=== PATIENT | male | born 1990 | race Caucasian/White ===

== ENCOUNTER 2021-12-16 14:18 | Emergency (ER) | payer OTHER ==
[~2021-12-16] VITALS: Ht 180.3 cm; Wt 81.6 kg
[2021-12-16 14:19] VITALS: BP 162/98
--- NOTE | 2021-12-16 14:35 | NUR ---
31 y/o male biba from work, pt presents to ED c/o of worsening anxiety, increased body pain, chest pain, abd pain, and general weakness that started today at work. pt stated "my organs are shutting down, my body feels weird, I cant sit down". pt reports also having numbness and tingling in upper extremities as well as a chest pressure. skin is pink/warm/dry. a&o x4, unable to ambulate. lungs clear bl, heart rate even and tachy. pt denies dysuria, hematuria, urinary frequency or retention, or anyone sick in the household with the same symptoms. pt denies any fever or cough at this time. pt states pain 10/10 at this time. ermd made aware of pt. pmh: denies nka med: unable to recall, GI supplements
[2021-12-16 16:09] LABS: BASOPHILS % (AUTO) 0.4 % (0.0-2.0); EOSINOPHILS % (AUTO) 0.2 % (0.0-4.0); HEMATOCRIT 45.4 % (36-52); HEMOGLOBIN 15.6 g/dL (12.0-18.0); LYMPHOCYTES # (AUTO) 1.1 K/uL (2.0-11.5); LYMPHOCYTES % (AUTO) 9.3 % (20.5-51.1); MEAN CORPUSCULAR HEMOGLOBIN 30 pg (27-31); MEAN CORPUSCULAR HGB CONC 34 g/dL (33-37); MEAN CORPUSCULAR VOLUME 86.9 fL (80-94); MONOCYTES # (AUTO) 0.6 K/uL (0.8-1.0); MONOCYTES % (AUTO) 5.5 % (1.7-9.3); NEUTROPHILS # (AUTO) 9.7 K/uL (1.8-7.7); NEUTROPHILS % (AUTO) 84.6 % (42.2-75.2); PLATELET COUNT (AUTO) 296 K/uL (140-450); RED BLOOD CELL COUNT(AUTO) 5.23 MIL/uL (4.20-6.10); RED CELL DISTRIBUTION WIDTH 13.2 % (11.6-13.7); WHITE BLOOD COUNT (AUTO) 11.4 K/uL (4.8-10.8)
[2021-12-16 16:30] LABS: ALBUMIN 4.7 g/dL (3.4-5.0); ANION GAP 18.8 (8-16); CARBON DIOXIDE 21.9 mmol/L (21-32); CREATININE 1.1 mg/dL (0.6-1.3); POTASSIUM 3.7 mmol/L (3.5-5.1); TOTAL BILIRUBIN 0.6 mg/dL (0.0-1.0)
[2021-12-16] MEDS: NACL 0.9% 1,000 ML IV ONE (16:34)
[2021-12-16] MEDS: LORazepam 2 MG/ML VIAL IVP ONE (17:14)
--- NOTE | 2021-12-16 17:16 | NUR ---
# 14 FR Urinary catheter inserted utilizing sterile technique. Immediate return of 600 ml yellow, clear urine noted. Urine sample collected and sent to lab. Pt tolerated procedure well.
[2021-12-16 17:53] LABS: BARBITURATE, URINE NEGATIVE ng/ml (NEG <=200); BENZODIAZEPINE, URINE NEGATIVE ng/mL (NEG <=200); CANNABINOID, URINE NEGATIVE ng/mL (NEG <=50); COCAINE, URINE NEGATIVE ng/mL (NEG <=300); OPIATE, URINE NEGATIVE ng/mL (NEG <=2000); PHENCYCLIDINE SCREEN,URINE NEGATIVE ng/mL (NEG <=25)
--- NOTE | 2021-12-16 18:12 | NUR ---
md galarza at bedside
--- NOTE | 2021-12-16 18:18 | NUR ---
pt has incontinence, pt states he had urge to void and thought he had urinary catheter in place still, states he has no loss of bladder control, thought catheter would catch urine. pt states he feels more relaxed, but is concerned about contraction of bilateral arms. bedding changed, pads placed, pericare done at this time
--- NOTE | 2021-12-16 18:32 | NUR ---
pt taken to ct via [facility]
--- NOTE | 2021-12-16 19:05 | NUR ---
spoke with pt about person to notify, notified that mother is calling for update and sounds upset. pt states he would like sister to be new point of contact since they both live in the same household.
--- NOTE | 2021-12-16 19:19 | NUR ---
REPORT RECEIVED FROM TALON COLE. CONTINUITY OF PT CARE AT THIS TIME.
--- NOTE | 2021-12-16 20:08 | NUR ---
PT LAYING IN BED LOCKED IN LOWEST POSITION W X2 SIDERAILS UP. PT REPORTS FEELING ALOT BETTER, ABLE TO MOVE BODY, NO ONGOING ABDOMINAL PAIN OR BODY ACHES, BUT REPORTS ONGOING BL ARM PAIN, CONTRACTION TO L ARM HAS IMPROVED. PT AOX4, GCS 15. PT CONNECTED TO MONITOR WILL CONTINUE TO MONITOR.
--- NOTE | 2021-12-16 20:18 | NUR ---
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
--- NOTE | 2021-12-16 20:35 | NUR ---
PT TO CT VIA [facility].
[2021-12-16] MEDS: KETOROLAC 30 MG/ML VIAL IVP ONE (21:05)
--- NOTE | 2021-12-16 21:05 | NUR ---
PT MOTHER AT BEDSIDE.
--- NOTE | 2021-12-16 21:12 | NUR ---
PT ARM CONTRACTIONS HAVE RESOLVED AT THIS TIME.
--- NOTE | 2021-12-16 21:44 | NUR ---
pt was able to stand up off bed and get back on bed, slight stumble upon walking to bed.
[2021-12-16] MEDS ORDERED: LORA-476 PO (22:03)
[2021-12-16 22:48] VITALS: BP 132/76
--- NOTE | 2021-12-16 22:48 | NUR ---
Patient discharged with v/s stable. Written and verbal after care instructions given and explained. Patient alert, oriented and verbalized understanding of instructions. Ambulatory with steady gait. All questions addressed prior to discharge. ID band removed. Patient advised to follow up with PMD. Rx of LORAZEPAM given. Patient educated on indication of medication including possible reaction and side effects. Opportunity to ask questions provided and answered.
[2021-12-17] MEDS ORDERED: LORA-476 PO ×2 (10:21→10:24)
== END 2021-12-16 22:48 | disposition home or self-care (01) ==
LOC: MED 14:18
DX: M62.838 Other muscle spasm (principal); F41.9 Anxiety disorder, unspecified; Z79.899 Other long term (current) drug therapy
CPT/HCPCS: 36415; 70450; 74176; 80053; 80305; 81002; 85025; 93005; 96361; 96374; 96375; 99285; J1885; J2060; J7030